=== PATIENT | male | born 1995 | race Caucasian/White ===

== ENCOUNTER 2016-09-13 20:24 | Emergency (ER) | payer OTHER ==
[2016-09-13] MEDS ORDERED: ASPIRIN-ACET-CAFF 250-250-65MG 1 EACH TAB PO STA (21:23)
--- NOTE | 2016-09-13 21:26 | ED ---
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 Patient states she got lightheaded and felt nauseated and vomited and went home at that point. Patient states when he got home he started having a headache he went to bed he woke up he was feeling little bit better but he vomited again and continued to have headache. Patient states she' s been here his been sleeping and he feels a lot better at this time. Patient states his only a mild headache at this time. Patient denies any fever or chills. Patient denies any neck pain or stiffness. Patient denies any numbness weakness. Patient denies any nausea at this time patient denies any vomiting since he's been here. Patient denies any abdominal pain. Patient denies any chest pain shortness of breath or difficulty breathing. - Related Data Home Medications Medication Instructions Recorded Confirmed Ibuprofen [Motrin] 400 mg PO Q6HR PRN 09/13/16 09/13/16 Allergies Allergy/AdvReac Type Severity Reaction Status Date / Time Sulfa (Sulfonamide Allergy Rash/Hives Verified 09/13/16 20:51 Antibiotics) Review of Systems ROS Statement: Those systems with pertinent positive or pertinent negative responses have been documented in the HPI. ROS Other: All systems not noted in ROS Statement are negative. Past Medical History Past Medical History: No Reported History History of Any Multi-Drug Resistant Organisms: None Reported Past Surgical History: Ear Surgery Additional Past Surgical History / Comment(s): ENT Past Psychological History: No Psychological Hx Reported Smoking Status: Current every day smoker Past Alcohol Use History: Occasional Past Drug Use History: Cocaine, Marijuana General Exam - General Exam Comments Initial Comments: GENERAL: Patient is well-developed and well-nourished. Patient is nontoxic and well- hydrated and is in no acute distress. Patient was sleeping when I entered the room when he awoke he did not appear to be in any distress. ENT: Neck is soft and supple. No significant lymphadenopathy is noted. Oropharynx is clear. Moist mucous membranes. Neck has full range of motion without eliciting any pain. Patient has severe dental caries EYES: The sclera were anicteric and conjunctiva were pink and moist. Extraocular movements were intact and pupils were equal round and reactive to light. Eyelids were unremarkable. PULMONARY: Unlabored respirations. Good breath sounds bilaterally. No audible rales rhonchi or wheezing was noted. CARDIOVASCULAR: There is a regular rate and rhythm without any murmurs gallops or rubs. ABDOMEN: Soft and nontender with normal bowel sounds. No palpable organomegaly was noted. There is no palpable pulsatile mass. SKIN: Skin is clear with no lesions or rashes and otherwise unremarkable. NEUROLOGIC: Patient is alert and oriented x3. Cranial nerves II through XII are grossly intact. Motor and sensory are also intact. Normal speech, volume and content. Symmetrical smile. MUSCULOSKELETAL: Normal extremities with adequate strength and full range of motion. LYMPHATICS: No significant lymphadenopathy is noted PSYCHIATRIC: Normal psychiatric evaluation. Limitations: no limitations Course Vital Signs 09/13/16 20:25 Temperature 97.1 F L Pulse Rate 67 Respiratory 18 Rate Blood Pressure 118/67 O2 Sat by Pulse 98 Oximetry Disposition Clinical Impression: Headache Disposition: HOME SELF-CARE Instructions: Acute Headache (ED) Additional Instructions: Patient should return to the emergency department if the headache becomes severe or if he starts having a fever or any neck stiffness. Referrals: None,Stated [Primary Care Provider] - 1-2 days Time of Disposition: 21:26
[2016-09-13 21:37] VITALS: BP 116/69; PULSE 78; RESP 22; TEMP 98.2
== END 2016-09-13 21:37 | disposition home or self-care (01) ==
LOC: EC 20:24
DX: R51 Headache (principal); R11.2 Nausea with vomiting, unspecified; R42 Dizziness and giddiness; F17.200 Nicotine dependence, unspecified, uncomplicated; Z88.2 Allergy status to sulfonamides
CPT/HCPCS: 99283

== ENCOUNTER 2018-04-09 17:03 | Emergency (ER) | payer OTHER ==
[2018-04-09 17:26] VITALS: RESP 18
--- NOTE | 2018-04-09 19:57 | ED ---
General Adult HPI - General Chief complaint: Urogenital Stated complaint: testicle pain Time Seen by Provider: 04/09/18 18:45 Source: patient, RN notes reviewed Mode of arrival: ambulatory Limitations: no limitations - History of Present Illness Initial comments: 22-year-old male presents to the emergency department for a chief complaint of left testicular pain 4 days. Patient states pain is worse when he is walking or sitting. He states is better when he is standing or laying down. He states it is mildly painful, aching in nature. Patient denies fevers or chills. Patient denies dysuria. Denies any fevers or chills. Patient states his friend told him he could have a testicular torsion so he presented to the emergency department. Patient has no other complaints at this time including shortness of breath, chest pain, abdominal pain, nausea or vomiting, headache, or visual changes. - Related Data Home Medications Medication Instructions Recorded Confirmed Ibuprofen [Motrin] 400 mg PO Q6HR PRN 09/13/16 09/13/16 Previous Rx's Medication Instructions Recorded Cephalexin [Keflex] 500 mg PO Q6H 10 Days cap 04/09/18 Allergies Allergy/AdvReac Type Severity Reaction Status Date / Time Sulfa (Sulfonamide Allergy Rash/Hives Verified 04/09/18 17:26 Antibiotics) Review of Systems ROS Statement: Those systems with pertinent positive or pertinent negative responses have been documented in the HPI. ROS Other: All systems not noted in ROS Statement are negative. Past Medical History Past Medical History: No Reported History History of Any Multi-Drug Resistant Organisms: None Reported Past Surgical History: Ear Surgery Additional Past Surgical History / Comment(s): ENT Past Psychological History: No Psychological Hx Reported Smoking Status: Current every day smoker Past Alcohol Use History: Occasional Past Drug Use History: Cocaine, Marijuana General Exam Limitations: no limitations General appearance: alert, in no apparent distress Head exam: Present: atraumatic, normocephalic, normal inspection Eye exam: Present: normal appearance, PERRL, EOMI. Absent: scleral icterus, conjunctival injection, periorbital swelling ENT exam: Present: normal exam, mucous membranes moist Neck exam: Present: normal inspection, full ROM. Absent: tenderness, meningismus, lymphadenopathy Respiratory exam: Present: normal lung sounds bilaterally. Absent: respiratory distress, wheezes, rales, rhonchi, stridor Cardiovascular Exam: Present: regular rate, normal rhythm, normal heart sounds. Absent: systolic murmur, diastolic murmur, rubs, gallop, clicks GI/Abdominal exam: Present: soft, normal bowel sounds. Absent: distended, tenderness, guarding, rebound, rigid exam: Present: other (3cm x 3 cm mass noted proximal to left testicle, does not feel fluctuant. No erythema overlying. mild tenderness noted. Sami RN was audio tape librarian on exam) Neurological exam: Present: alert, oriented X3, CN II-XII intact Psychiatric exam: Present: normal affect, normal mood Course Vital Signs 04/09/18 17:23 Temperature 98.3 F Pulse Rate 60 Respiratory 18 Rate Blood Pressure 118/69 O2 Sat by Pulse 99 Oximetry Medical Decision Making - Medical Decision Making 22-year-old male presents to the emergency determine for left testicular mass 4 days. Patient states it is tender when he is sitting or walking because pressure is on it. He denies any drainage from the area erythema, or fluctuance. On exam this is more inguinal. It does not feel fluctuant or appear erythematous. It does not appear infectious. He is afebrile. Likely a lymph node, patient will be treated with antibiotics. Ultrasound shows left small hydrocele. He refuses STD testing or empiric Treatment, understands the risks. Patient will follow up with urology for both of these problems. I assessed returning here if mass appears erythematous, fluctuant, or infectious. Patient agrees to do this. He will also return if he has any other worsening symptoms. Disposition Clinical Impression: Left groin mass Disposition: HOME SELF-CARE Condition: Good Instructions: Hydrocele (ED), Lymphadenopathy (ED), Testicle Pain (ED) Additional Instructions: Please take antibiotic as directed. Please follow-up with urology in 1-2 days. Return to the emergency department if you have any worsening symptoms. Prescriptions: Cephalexin [Keflex] 500 mg PO Q6H 10 Days cap Is patient prescribed a controlled substance at d/c from ED?: No Referrals: Steve Nicole MD [STAFF PHYSICIAN] - 1-2 days Time of Disposition: 20:26
--- NOTE | 2018-04-09 20:16 | US ---
EXAMINATION TYPE: US scrotum with doppler. Grayscale and color Doppler Duplex imaging performed of dai correa scrotum. DATE OF EXAM: 04/09/2018 COMPARISON: NONE CLINICAL HISTORY: Pain. Left testicle lump and pain. EXAM MEASUREMENTS: TESTICLES: Right Testicle: 4.6 x 2.6 x 3.9 cm Left Testicle: 3.9 x 2.3 x 3.2 cm EPIDIDYMIS HEAD: Right Epididymis: 1.0 x 1.0 x .8 cm Left Epididymis: .7 x .8 x .7 cm Doppler performed to assess for testicular vascularity; good bilateral color flow and waveforms are s een. There is no evidence of testicular torsion. Presence of hydroceles: Small amount of fluid seen left testicle. Presence of varicoceles: No IMPRESSION: Small left-sided hydrocele. No testicular torsion or mass.
[2018-04-09 20:41] VITALS: BP 110/59; PULSE 59; TEMP 98.1
== END 2018-04-09 20:35 | disposition home or self-care (01) ==
LOC: EC 17:03
DX: R19.04 Left lower quadrant abdominal swelling, mass and lump (principal); N43.3 Hydrocele, unspecified; N50.812 Left testicular pain; F17.200 Nicotine dependence, unspecified, uncomplicated; Z88.2 Allergy status to sulfonamides
CPT/HCPCS: 76870; 93975; 99284

== ENCOUNTER 2020-10-13 10:47 | Emergency (ER) | payer BC ==
[2020-10-13 10:51] VITALS: RESP 18; TEMP 97.7
--- NOTE | 2020-10-13 11:23 | XR ---
EXAMINATION TYPE: XR chest 2V DATE OF EXAM: 10/13/2020 COMPARISON: 04/29/2012 HISTORY: 25-year-old male with chest discomfort for 2 weeks TECHNIQUE: Frontal and lateral views of the chest are obtained. FINDINGS: Heart size is within normal limits. Trachea is midline. No focal consolidation, pneumothor ax or pleural effusion. Osseous structures are unremarkable. IMPRESSION: 1. No acute pulmonary disease.
--- NOTE | 2020-10-13 11:53 | ED ---
Chest Pain HPI - General Chief Complaint: Chest Pain Stated Complaint: Chest Pain Time Seen by Provider: 10/13/20 10:53 Source: patient, RN notes reviewed Mode of arrival: ambulatory Limitations: no limitations - History of Present Illness Initial Comments: This a 25-year-old male presents emergency Department chief complaint chest wall pain. Patient states she's been having symptoms last couple weeks states it hurts when he does large amounts of activity. States it is along her sternum states that hurts with certain movements. Shortness of breath. No fevers chills. Denies any bradycardic of lung disease states he does day. No abdominal complaints no reflux issues. Patient states he has tried some ongoing pain reliever which helped. - Related Data Home Medications Medication Instructions Recorded Confirmed Ibuprofen [Motrin] 400 mg PO Q6HR PRN 09/13/16 04/09/18 Previous Rx's Medication Instructions Recorded Cephalexin [Keflex] 500 mg PO Q6H 10 Days cap 04/09/18 Ibuprofen [Motrin] 600 mg PO Q8HR PRN #20 tab 10/13/20 Allergies Allergy/AdvReac Type Severity Reaction Status Date / Time Sulfa (Sulfonamide Allergy Rash/Hives Verified 10/13/20 10:51 Antibiotics) Review of Systems ROS Statement: Those systems with pertinent positive or pertinent negative responses have been documented in the HPI. ROS Other: All systems not noted in ROS Statement are negative. EKG Findings - EKG Comments: EKG Findings:: EKG performed at 11:03 sinus bradycardia rate of 58 LA 106 QRS 102 QT/QTC 390/384 Past Medical History Past Medical History: No Reported History History of Any Multi-Drug Resistant Organisms: None Reported Past Surgical History: Ear Surgery Additional Past Surgical History / Comment(s): ENT Past Psychological History: No Psychological Hx Reported Smoking Status: Vaper Past Alcohol Use History: Occasional Past Drug Use History: Cocaine, Marijuana General Exam Limitations: no limitations General appearance: alert, in no apparent distress Head exam: Present: atraumatic, normocephalic, normal inspection Neck exam: Present: normal inspection, full ROM. Absent: tenderness, meningismus, lymphadenopathy Respiratory exam: Present: normal lung sounds bilaterally, chest wall tenderness. Absent: respiratory distress, wheezes, rales, rhonchi, stridor Cardiovascular Exam: Present: regular rate, normal rhythm, normal heart sounds. Absent: systolic murmur, diastolic murmur, rubs, gallop, clicks GI/Abdominal exam: Present: soft, normal bowel sounds. Absent: distended, t enderness, guarding, rebound, rigid Course Vital Signs 10/13/20 10:47 Temperature 97.7 F Pulse Rate 88 Respiratory 18 Rate Blood Pressure 150/97 O2 Sat by Pulse 98 Oximetry Chest Pain MDM - MDM Chest x-ray is unremarkable. Patient's symptoms reproducible and more related to costochondritis, chest wall inflammatory. Patient does large amount of heavy lifting at work and exacerbates his symptoms. Patient was started on anti- inflammatories with close follow-up return parameters were discussed. Patient did have labs which were negative including d-dimer, troponin EKG showed some early repolarization. Disposition Clinical Impression: Chest wall pain Disposition: HOME SELF-CARE Condition: Stable Instructions (If sedation given, give patient instructions): Chest Wall Pain (ED) Additional Instructions: Please return to the Emergency Department if symptoms worsen or any other concerns. Prescriptions: Ibuprofen [Motrin] 600 mg PO Q8HR PRN #20 tab PRN Reason: Pain Is patient prescribed a controlled substance at d/c from ED?: No Referrals: None,Stated [Primary Care Provider] - 1-2 days
[2020-10-13 12:13] LABS: Basophils # (A) 0.1 k/uL (0-0.2); Basophils % (A) 2 %; Eosinophils # (A) 0.6 k/uL (0-0.7); Eosinophils % (A) 11 %; HGB 15.3 gm/dL (13.0-17.5); Lymphocytes # (A) 1.8 k/uL (1.0-4.8); Lymphocytes % (A) 34 %; MCH 30.9 pg (25.0-35.0); MCHC 34.8 g/dL (31.0-37.0); MCV 88.6 fL (80.0-100.0); Mean Platelet Volume 7.2; Monocytes # (A) 0.6 k/uL (0-1.0); Monocytes % (A) 11 %; Neutrophils # (A) 2.2 k/uL (1.3-7.7); Neutrophils % (A) 40 %; Platelet Count 330 k/uL (150-450); RBC 4.97 m/uL (4.30-5.90); RDW 11.6 % (11.5-15.5); WBC 5.3 k/uL (3.8-10.6)
[2020-10-13 12:21] LABS: ALT 10 U/L (4-49); AST 19 U/L (17-59); African American GFR (CKD) >90 (>60 ml/min/1.73 sqM); Albumin 4.8 g/dL (3.5-5.0); Alkaline Phosphatase 53 U/L (38-126); Anion Gap 6 mmol/L; Blood Urea Nitrogen 14 mg/dL (9-20); Calcium 10.1 mg/dL (8.4-10.2); Carbon Dioxide 30 mmol/L (22-30); Chloride 103 mmol/L (98-107); Glucose 92 mg/dL (74-99); Magnesium 1.9 mg/dL (1.6-2.3); Non-African American GFR(CKD) >90 (>60 ml/min/1.73 sqM); Potassium 4.5 mmol/L (3.5-5.1); Sodium 139 mmol/L (137-145); Total Bilirubin 0.7 mg/dL (0.2-1.3); Total Protein 7.6 g/dL (6.3-8.2)
[2020-10-13 12:28] LABS: D-Dimer 0.18 mg/L FEU (<0.60); INR 1.1 (<1.2); Partial Thromboplastin Time 25.4 sec (22.0-30.0); Prothrombin Time 11.2 sec (9.0-12.0)
[2020-10-13 13:32] VITALS: BP 121/77; PULSE 65
== END 2020-10-13 13:36 | disposition home or self-care (01) ==
LOC: EC 10:47
DX: R07.89 Other chest pain (principal); R06.02 Shortness of breath; F17.290 Nicotine dependence, other tobacco product, uncomplicated; Z79.1 Long term (current) use of non-steroidal anti-inflammatories (NSAID)
CPT/HCPCS: 36415; 71046; 80053; 83735; 84484; 85025; 85379; 85610; 85730; 93005; 99285